=== PATIENT | female | born 1955 | race Caucasian/White ===

== ENCOUNTER 2022-03-26 12:37 | Outpatient (CLI) | payer MEDICARE, SELFPAY ==
--- NOTE | 2022-03-26 13:00 | MR_ITS ---
[address] [address] Phone:?[phone] Fax:?[phone] Referring Physician Information: Salina Keane [address] [facility] [address] Phone:?[phone] Fax:?[phone] Patient:?Lola Chopra D.O.B:?1955 Sex:?Female Phone:?[phone] [facility] MRN:?[id number] Exam Date:?03/26/2022 ? EXAM: MRI of the RIGHT KNEE, without contrast CLINICAL INFORMATION: Female, 66 years old, with right knee pain. INDICATION: Evaluate for osteochondral defect. PRIOR SURGERY: None reported. PLAIN FILMS: None available. COMPARISONS: No prior MRIs available. TECHNICAL INFORMATION: Using a 1.5T MR scanner and a localizing surface coil: sagittals: PD, PDFS coronals: PD, T2FS axials: PD, PDFS SEDATION: None CONTRAST: None FINDINGS: Knee joint: Effusion: Moderate right knee effusion. Popliteal cyst: None. Loose bodies: None. Subcutaneous and extra-articular soft tissues: Unremarkable. Ligaments: ACL: Intact ACL anteromedial and posterolateral bundles, without sprain or tear. PCL: Intact PCL, without acute or chronic injury. MCL: Mild thickening involving the proximal one third of the superficial MCL, without MCL tear (coronal PD series 7 image 17). LCL: Intact LCL, without injury. Posterolateral corner: No posterolateral corner soft tissue injury. Popliteus, biceps femoris, iliotibial band, popliteofibular ligament and lateral gastrocnemius are intact. Posteromedial corner: No posteromedial corner soft tissue injury. Semimembranosus, pes anserine tendons and posterior oblique ligament are without injury, tendinopathy or bursitis. Extensor mechanism: Patellar tendon: Intact, without tendinopathy. Quadriceps tendon: Intact, without tendinopathy. Retinacula: Medial and lateral retinacula are intact. Fat pads: Unremarkable infrapatellar Hoffa's, quadriceps and prefemoral fat pads. Medial compartment: Medial meniscus: Complex apical free edge and undersurface tearing throughout the posterior horn/root of the medial meniscus is present over a length of 1.1 cm (sagittal PDFS series 6 images 18-21). Associated meniscal extrusion measures 6 mm. No parameniscal cyst. Medial femoral condyle: Broad-based grade III chondromalacia throughout the central surface of the medial femoral condyle, with a superimposed osteochondral lesion measuring 1.4 x 0.7 cm apparent sagittal PD series 5 image 22 and coronal PD series 7 image 18). Mild reactive osseous changes are present adjacent to this osteochondral lesion, but there is no undermining fluid signal, osseous fragmentation, or cortical defect. Medial tibial plateau: Generalized grade II chondromalacia of the medial tibial plateau. Lateral compartment: Lateral meniscus: No articular surface, meniscosynovial junction or root tear. No displacement, extrusion or parameniscal cyst. Lateral femoral condyle: No chondromalacia or osteochondral abnormality. Lateral tibial plateau: No chondromalacia or osteochondral abnormality. Patellofemoral joint: Patella: Broad-based grade II/III chondromalacia throughout the medial facet and median ridge of the patella, with mild reactive osseous changes and minimal marginal osteophytosis. Trochlea: No chondromalacia or osteochondral abnormality. Proximal tibiofibular joint: Unremarkable, without evidence of ligament sprain injury, joint effusion or adjacent marrow edema. Bones: No stress/occult fractures or other marrow edema/pathology. IMPRESSION: 1. Complex apical free edge and undersurface tearing of the posterior horn/root of the medial meniscus measuring 1.1 cm, with 6 mm of meniscal extrusion. 2. Mild-moderate osteoarthritis of the medial compartment with a 1.4 x 0.7 cm stable osteochondral lesion of the central surface of the medial femoral condyle. 3. 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 4. Moderate knee joint effusion. No popliteal (Collins's) cyst. 5. Chronic sequela low-grade proximal MCL sprain, without tear. No ACL, PCL, or LCL sprain/tear. 6. No lateral meniscal tear or osteochondral abnormality of the lateral compartment. BC Electronically signed on 03/26/2022 4:22:00 PM by Quan Ng M.D.
== END 2022-03-26 12:38 | disposition home or self-care (01) ==
LOC: MRI 12:38
PROVIDERS: PCP Internal Medicine; Visit Provider Physician Assistant
DX: M95.8 Other specified acquired deformities of musculoskeletal system (principal); M25.561 Pain in right knee; M23.221 Derangement of posterior horn of medial meniscus due to old tear or injury, right knee; M94.261 Chondromalacia, right knee; S83.411A Sprain of medial collateral ligament of right knee, initial encounter; M25.461 Effusion, right knee
CPT/HCPCS: 73721

== ENCOUNTER 2022-04-08 09:06 | Outpatient (CLI) | payer MEDICARE, SELFPAY ==
[2022-04-08 22:26] LABS: SARS PCR* Negative SARS-CoV-2 (Negative)
== END 2022-04-08 09:07 | disposition home or self-care (01) ==
LOC: FBOREF 09:06
PROVIDERS: PCP Internal Medicine; Visit Provider Orthopaedic Surgery
DX: Z20.822 Contact with and (suspected) exposure to COVID-19 (principal)
CPT/HCPCS: 87635

== ENCOUNTER 2022-04-09 07:11 | Day surgery (SDC) | payer MEDICARE, SELFPAY ==
[2022-04-09] VITALS (12 sets, daily range): BP systolic 101–160; BP diastolic 42–102; PULSE 52–63; RESP 16; TEMP 36.1–36.7; O2SAT 94–97; BMI 43.2
[2022-04-09] MEDS: LACTATED RINGERS 1000 ML 1,000 ML 100 ML IV (08:00)
[2022-04-09] MEDS: CEFAZOLIN 2 GM INJ IVP (09:32)
--- NOTE | 2022-04-09 10:57 | W.ANESCHARGE ---
Anesthesia Charges Start Date/Time Anesthesia Start Date: 04/09/22 Anesthesia Start Time: 09:16 Stop Date/Time Anesthesia Stop Date: 04/09/22 Anesthesia Stop Time: 10:50 Summary Emergency: No
--- NOTE | 2022-04-09 11:14 | SUR.PHASEI ---
TIME?OUT:?1100 PT/RN/MDA?VERIFICATION?OF?SURGICAL?SITE,?PROCEDURE,?AND?CONSENT OBTAINED?PRIOR?TO?INVASIVE?PROCEDURE.
--- NOTE | 2022-04-09 11:41 | W.ANESCHARGE ---
Anesthesia Charges Start Date/Time Anesthesia Start Date: 04/09/22 Anesthesia Start Time: 09:16 Stop Date/Time Anesthesia Stop Date: 04/09/22 Anesthesia Stop Time: 10:50 Summary Emergency: No
--- NOTE | 2022-04-09 11:43 | P.NB_ITS ---
Nerve Block Nerve Block Date Seen: 04/09/22 Type of block requested by surgeon for post-operative analgesia: geniculars Side: right Time out performed: Yes Verification of patient name: Yes Verification of date of : Yes Site marking: site marked Name of person performing procedure: Satish Continuous monitoring Was continuous monitoring of O2 sat, B/P, manager of organizational development, recorded every 15 minutes?: Yes Procedure Checklist: sterile prep, needles and gloves Medications given in 5ml increments after negative aspiration: Marcaine %: 0.5 mL: 15 Needle gauge: 25 Decadron (mg): 5 Patient tolerated procedure well: Yes Block Charges Block Charge (with Pro Fee): Genicular Nerve Block Use of Ultrasound Machine for Block: No
--- NOTE | 2022-04-09 12:14 | PM.ORPRC ---
Procedure Note Date of procedure: 04/09/22 Procedure: SURGEON: Dima Joyce MD GROUTMAN: DALLAS Cid PREOPERATIVE DIAGNOSIS: Right knee medial meniscus root tear POSTOPERATIVE DIAGNOSIS: Right knee medial meniscus root tear NAME OF OPERATION: Right knee arthroscopic medial meniscus root repair ANESTHESIA: Spinal ESTIMATED BLOOD LOSS: 0 mL COMPLICATIONS: None SPECIMENS: None DRAINS: None PREOPERATIVE ANTIBIOTICS: Ancef 2 gram INDICATIONS: The patient is a 66-year-old female with a history of right knee medial pain. MRI scan is consistent with a medial meniscus root tear. Despite appropriate nonoperative management, including activity modification, antiinflammatories, [id number]-[id number] pain medication, bracing, physical therapy, and injections they continue to have pain and disability. Operative intervention was offered. The risks, benefits and expected outcomes were discussed in detail. These included but were not limited to: Infection, bleeding, injury to blood vessel or nerve, venous thromboembolism. All questions were answered to their satisfaction. PROCEDURE: Spinal anesthesia was administered. The patient was placed supine on the operating room table. The right lower extremity was prepped and draped in the usual sterile fashion. The limb was exsanguinated with the Alfredito bandage. The pneumatic tourniquet was inflated to 300 mmHg. A standard anterolateral portal was established. The arthroscope was introduced. The working portal was established anteromedially. Diagnostic arthroscopy was performed with findings as follows: The suprapatellar pouch is normal. Articular surface on the patella is normal. Articular surface on the trochlea is normal. The medial gutter is normal. The medial compartment shows a linear area of grade 3/4 regional climate change analyst the far medial aspect of the medial femoral condyle, posteriorly. The medial meniscus has a radial tear at the posterior tibial attachment, detaching it from the tibia. The notch shows the ACL to be intact. The lateral compartment shows normal articular cartilage on the lateral femoral condyle and lateral tibial plateau. The lateral meniscus is normal. The lateral gutter is normal. The undersurface of the posterior horn of the medial meniscus and the root tear were debrided with the shaver. Unstable chondral flaps on the medial femoral condyle were debrided with the shaver. The passport was placed in the anteromedial portal. The knee scorpion was used to pass a fiber link x 2 in the posterior horn of the medial meniscus. The tibial drill guide was used over the footprint of the root. A longitudinal incision over the anteromedial face of the tibia was placed. The flip cutter was drilled into the footprint. For The flip cutter was flipped and back cut 5 mm. It was removed and exchanged for a fiber stick. The fiber stick was brought out the anteromedial portal and was used to shuttle both of the fiber link luggage tag sutures on the posterior horn out the anteromedial tibia. We then tensioned the sutures and fixed them to the tibia with a SwiveLock anchor. This provided an excellent repair of the posterior tibial attachment of the medial meniscus to its anatomic footprint. The power pick was used to microfracture the notch both medially and laterally. Arthroscopic instruments were removed, the portal sites were Steri-Stripped closed, the incision over the tibia was closed with 3-0 Vicryl and 4-0 Monocryl, the knee was infiltrated with 30 mL of 0.25% Marcaine without epinephrine. A dry dressing was applied, the tourniquet was released. Sponge and needle counts were correct x 2. The patient tolerated the procedure well. There were no apparent complications. They were carefully transferred to the hospital bed and taken to the postanesthesia care unit in satisfactory condition. PLAN: The patient will be discharged to home. They may weightbear as tolerates. Range of motion will be allowed from 0-90 degrees x 2 weeks then unrestricted range of motion. They will follow up in 1-2 weeks for a wound check.
== END 2022-04-09 13:00 | disposition home or self-care (01) ==
PROVIDERS: PCP Internal Medicine; Visit Provider Orthopaedic Surgery
PROC: (CPT 29882; principal; 2022-04-09 09:00)
DX: M23.221 Derangement of posterior horn of medial meniscus due to old tear or injury, right knee (principal)
CPT/HCPCS: 29882; 01400; 64454; 97116; 97161; C1713; J0690; J1100; J2250; J2704; J3010; J3490; J7120; L1833

== ENCOUNTER 2022-05-25 16:49 | Outpatient (CLI) | payer MEDICARE, SELFPAY ==
[2022-05-25 22:43] LABS: SARS PCR* Negative SARS-CoV-2 (Negative)
== END 2022-05-25 16:50 | disposition home or self-care (01) ==
LOC: FBOREF 16:50
PROVIDERS: PCP Internal Medicine; Visit Provider Family Medicine
DX: Z20.822 Contact with and (suspected) exposure to COVID-19 (principal); R05.9 Cough, unspecified; R53.83 Other fatigue
CPT/HCPCS: 87635